=== PATIENT | male | born 1970 | race Caucasian/White ===

== ENCOUNTER 2022-08-31 12:36 | Emergency (ER) | payer MEDICARE ==
[2022-08-31] MEDS ORDERED: HYDROcodone/Acetaminophen 10/325 mg Tablet ONE (12:56)
[2022-08-31] MEDS ORDERED: Ibuprofen 800 MG TAB ONE (12:56)
== END 2022-08-31 13:04 | disposition home or self-care (01) ==
LOC: BURERS 12:36
DX: M10.9 Gout, unspecified (principal); F17.200 Nicotine dependence, unspecified, uncomplicated
CPT/HCPCS: 99283

== ENCOUNTER 2022-11-30 00:55 | Emergency (ER) | payer MEDICARE ==
[2022-11-30] MEDS ORDERED: HYDROcodone/Acetaminophen 10/325 mg Tablet ONE (01:06)
[2022-11-30] MEDS ORDERED: Dexamethasone 10 MG/ML VIAL ONE (01:06)
[2022-11-30] MEDS ORDERED: Ketorolac Tromethamine 60 MG/2 ML VIAL ONE (01:07)
== END 2022-11-30 01:25 | disposition home or self-care (01) ==
LOC: BURERS 00:55
DX: M10.9 Gout, unspecified (principal)
CPT/HCPCS: 96372; J1100; J1885

== ENCOUNTER 2023-01-10 18:22 | Emergency (ER) | payer MEDICARE ==
[2023-01-10 18:51] LABS: #Basophils 0.1 thou/uL (0.0-0.2); #Eosinphils 0.1 thou/uL (0.0-0.7); #Lymphocytes 1.2 thou/uL (1.20-3.40); #Monocytes 0.6 thou/uL (0.11-0.59); #Neutrophils 4.9 thou/uL (1.40-6.50); %Basophils 1.2 % (0.0-1.0); %Eosinophils 1.9 % (0.0-10.0); %Lymphocytes 17.9 % (21.0-51.0); %Monocytes 8.6 % (0.0-10.0); %Neutrophils 70.4 % (42.0-75.0); Hemoglobin 14.1 g/dL (14.0-18.0); Mean Corpuscular HGB CONC 32.8 g/dL (32.0-36.0); Mean Corpuscular Hemoglobin 29.5 pg (27.0-31.0); Mean Corpuscular Volume 89.8 fl (78.0-98.0); Mean Platelet Volume 8.9 fL (7.4-10.4); Platelet Count 226 10x3/uL (130-400); RBC Distribution Width 12.7 % (11.5-14.5); White Blood Cell (WBC) Count 6.9 10x3/uL (4.8-10.8)
[2023-01-10 19:07] LABS: ALT (SGPT) 20 U/L (8-55); AST (SGOT) 20 U/L (5-34); Albumin 4.3 g/dL (3.5-5.0); Alkaline Phosphatase 83 U/L (40-110); Anion Gap 13 mmol/L (10-20); BUN (Urea Nitrogen) 14 mg/dL (8.4-25.7); Bilirubin, Total 0.6 mg/dL (0.2-1.2); CK (CPK) 152 U/L (30-200); Calc. Creatinine Clearance 0 mL/min (70-130); Calcium 9.4 mg/dL (7.8-10.44); Carbon Dioxide 28 mmol/L (22-29); Chloride 104 mmol/L (98-107); Estimated GFR 60; Globulin 3.5 g/dL (2.4-3.5); Glucose 101 mg/dL (70-105); Potassium 3.6 mmol/L (3.5-5.1); Protein, Total 7.8 g/dL (6.0-8.3); Sodium 141 mmol/L (136-145)
[2023-01-10 19:42] LABS: Bilirubin Small (Negative); Blood, Urine Negative (Negative); Clarity Clear (Clear); Glucose, Urine (Dipstick) Negative (Negative); Ketone, Urine Negative (Negative); Leukocyte Negative (Negative); Nitrite Negative (Negative); Protein, Urine (Dipstick) Negative (Neg-Trace); Specific Gravity, Urine 1.025 (1.005-1.030); pH, Urine 5.5 (5.0-9.0)
== END 2023-01-10 20:00 | disposition home or self-care (01) ==
LOC: BURERS 18:22
DX: R60.0 Localized edema (principal); F17.200 Nicotine dependence, unspecified, uncomplicated; M10.9 Gout, unspecified
CPT/HCPCS: 36415; 71046; 80053; 81003; 82550; 83880; 84484; 85025; 93005

== ENCOUNTER 2023-12-01 17:59 | Emergency (ER) | payer SELFPAY ==
[2023-12-01] MEDS ORDERED: predniSONE 20 MG TAB ONE (18:24)
== END 2023-12-01 18:30 | disposition home or self-care (01) ==
LOC: BURERS 17:59
DX: M10.9 Gout, unspecified (principal); F17.290 Nicotine dependence, other tobacco product, uncomplicated
CPT/HCPCS: 99283; J7512

== ENCOUNTER 2025-08-01 07:44 | Emergency (ER) | payer OTHER ==
[2025-08-01] MEDS ORDERED: predniSONE 20 MG TAB ONE (08:55)
== END 2025-08-01 08:58 | disposition home or self-care (01) ==
LOC: BURERS 07:44
DX: M10.9 Gout, unspecified (principal); F17.220 Nicotine dependence, chewing tobacco, uncomplicated; F17.290 Nicotine dependence, other tobacco product, uncomplicated
CPT/HCPCS: 99283; J7512